=== PATIENT | female | born 1995 | race Two or more races ===

== ENCOUNTER 2019-08-30 12:04 | Inpatient (IN) | payer OTHER ==
[2019-08-30 12:53] LABS: APPEARANCE,URINE SLIGHTLY-CLOUDY; BILIRUBIN,URINE NEGATIVE (NEGATIVE); COLOR,URINE YELLOW; GLUCOSE, URINE NEGATIVE (NEGATIVE); KETONES,URINE NEGATIVE (NEGATIVE); LEUKOCYTE ESTERASE,URINE NEGATIVE (NEGATIVE); NITRITE,URINE NEGATIVE (NEGATIVE); PROTEIN,URINE 30 mg/dL (NEGATIVE); URINE SPECIFIC GRAVITY 1.018
[2019-08-30] MEDS ORDERED: RINGERS SOLUTION,LACTATED 1,000 ML IV PRN (13:04)
[2019-08-30] MEDS ORDERED: OXYTOCIN/NORMAL SALINE 20 UNIT/1,000 ML RTUINJ IV PRN (13:04)
[2019-08-30] MEDS ORDERED: PENICILLIN G POTASSIUM 5,000,000 UNIT in DEXTROSE 5%-WATER 100 ML IV ONE (13:04)
[2019-08-30 13:16] LABS: URINE AMPHETAMINES SCREEN NEGATIVE; URINE BARBITURATES SCREEN NEGATIVE; URINE BENZODIAZEPINES SCREEN NEGATIVE; URINE COCAINE SCREEN NEGATIVE; URINE MARIJUANA (THC) SCREEN NEGATIVE; URINE METHADONE SCREEN NEGATIVE; URINE PHENCYCLIDINE SCREEN NEGATIVE
[2019-08-30] MEDS ORDERED: OXYTOCIN/NORMAL SALINE 0 UNIT/0 ML RTUINJ ONE (13:23)
[2019-08-30] MEDS ORDERED: PENICILLIN G-K 5 MILLION UNIT VIAL ONE ×3 (13:23→22:46)
[2019-08-30 13:41] LABS: ABSOLUTE LYMPHOCYTES (AUTO) 2.2 10^3/uL (0.5-4.7); ABSOLUTE MONOCYTES (AUTO) 0.5 10^3/uL (0.1-1.4); ABSOLUTE NEUT (AUTO) 4.7 10^3/uL (1.7-8.2); BASOPHILS % (AUTO) 0.3 % (0-2); EOSINOPHILS % (AUTO) 0.5 % (0-6); HEMATOCRIT 31.9 % (36.0-47.0); HEMOGLOBIN 10.8 g/dL (12.0-15.5); LYMPHOCYTES % (AUTO) 29.3 % (13-45); MEAN CORPUSCULAR HEMOGLOBIN 30.1 pg (27.0-33.4); MEAN CORPUSCULAR HGB CONC 33.9 g/dL (32.0-36.0); MEAN CORPUSCULAR VOLUME 89 fl (80-97); MONOCYTES % (AUTO) 6.3 % (3-13); PLATELET COUNT 212 10^3/uL (150-450); RED CELL DISTRIBUTION WIDTH 13.6 % (11.5-14.0); SEGMENTED NEUTROPHILS % (AUTO) 63.6 % (42-78); TOTAL CELLS COUNTED % (AUTO) 100 %; WHITE BLOOD COUNT 7.4 10^3/uL (4.0-10.5)
--- NOTE | 2019-08-30 13:46 | Admission Physical ---
Datetime Report Generated by CPN: 08/30/2019 13:45 CURRENT ADMISSION Chief Complaint: Suspected Ruptured Membranes Chief Complaint Other: Reports SROM 0400 clear cramping Indication for Induction: Not Applicable Admit Impression : No Active Labor; Ruptured Membranes Admit Plan: Initiate Labor Augmentation Protocol Admit Plan- Other: GBS unknown ALLERGIES Medication Allergies: No Medication Allergies: No Known Allergies (08/30/2019) Latex: No Latex Allergies OBSTETRICAL HISTORY EDC: 09/23/2019 00:00 : 2 Para: 0 Term: 0 : 0 SAB: 0 IAB: 0 Ectopic: 0 Livin Cesareans: 0 VBACs: 0 Multiple Births: 0 Gestational Diabetes: No Rh Sensitization: No Incompetent Cervix: No ANÍBAL: No Infertility: No ART Treatment: No Uterine Anomaly: No IUGR: No Hx Previous C/S: No Macrosomia: No Hx Loss/Stillborn: No PIH: No Hx : No Placenta Previa/Abruption: No Depression/PP Depression: No PTL/PROM: No Post Hemorrhage: No Current Procedures: Ultrasound Obstetrical History Comments: G1- 7 weeks G2- Current SEE RECORDS Alcohol: No Marijuana : No Cocaine: No Other Illicit Drugs: No Cigarettes: Never Smoker. 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: No Heart Disease: No Hosp/Surgery: Yes Autoimmune Disorder: No Anesthetic Complications: No Kidney Disease: No Abnormal Pap Smear: No Neuro/Epilepsy: No Psychiatric Disorders: No Other Medical Diseases: No Hepatitis/Liver Disease: No Significant Family History: No Varicosities/Phlebitis: No Trauma/Violence : No Thyroid Dysfunction: No INFECTIOUS HISTORY Gonorrhea: No Genital Herpes: No Chlamydia: No Tuberculosis: No Syphilis: No Hepatitis: No HIV/AIDS Exposure: No Rash or Viral Illness: No HPV: No PHYSICAL EXAM General: Normal HEENT: Deferred Neurologic: Normal Thyroid: Deferred Heart: Normal Lungs: Normal Breast: Deferred Back: Deferred Abdomen: Normal Genitourinary Exam: Normal Extremities: Normal DTRs: Deferred Pelvic Type: Adequate Vital Signs: Reviewed VAGINAL EXAM Dilatation: 2 Effacement: 80 Station: -2 MEMBRANES Membranes: Ruptured Amniotic Fluid Color: Clear FETUS A EGA: 36.4 Monitoring: External US FHR- Baseline: 135 Variability: Moderate 6-25bpm Accelerations: 15X15 Decelerations: None Presentation: Vertex Admit Comment: PPROM will augment with pitocin Start GBS prophylaxis EFW yesterday at [facility] 7lb 11oz bening course excessive wt gain 50lbs PLANS FOR LABOR AND DELIVERY Labor and Delivery: None Pain Management: Medications; Epidural Feeding Preference: Breast Benefit of Breast Feed Discussed: Yes Circumcision: Yes INFORMED CONSENT Assignment: Rory Cisneros MD Signature: with User ID: Enrique : with User ID: [email or web address]
[2019-08-30 14:38] LABS: CHLAM PCR NOT DETECTED (NOT DETECT)
[2019-08-30] MEDS: PENICILLIN G POTASSIUM 2,500,000 UNIT in DEXTROSE 5%-WATER 50 ML IV SCH ×2 (18:38→22:57)
[2019-08-30] MEDS ORDERED: OXYTOCIN/NORMAL SALINE 20 UNIT/1,000 ML RTUINJ ONE (23:24)
[2019-08-30] MEDS ORDERED: LIDOCAINE 1% INJ-PF (10 MG/ML) 30 ML SDV ONE (23:24)
[2019-08-30] MEDS ORDERED: MISOPROSTOL 0.2 MG TABLET ONE (23:24)
[2019-08-30] MEDS ORDERED: OXYTOCIN 10 UNIT/ML VIAL ONE (23:24)
[2019-08-30] MEDS ORDERED: NALBUPHINE HCL INJ 10 MG/1 ML AMPULE ONE (23:54)
[2019-08-30] MEDS ORDERED: NALBUPHINE HCL INJ 10 MG/1 ML AMPULE IV ONE (23:54)
[2019-08-31] MEDS ORDERED: PENICILLIN G-K 5 MILLION UNIT VIAL ONE ×2 (02:33→06:25)
[2019-08-31] MEDS ORDERED: EPHEDRINE SULFATE INJ 50 MG/1 ML AMPULE ONE (02:47)
[2019-08-31] MEDS ORDERED: FENTANYL/BUPIVACAINE/NS/PF 300 MCG/150 ML RTUINJ EPI ONE (02:47)
[2019-08-31] MEDS ORDERED: BUPIVACAINE HCL 0.25 % INJ/PF (2.5 MG/1 ML) 30 ML VIAL ONE (02:48)
[2019-08-31] MEDS ORDERED: IBUPROFEN 800 MG TABLET ONE (09:50)
[2019-08-31] MEDS ORDERED: BENZOCAINE/MENTHOL AEROSOL SPRAY 56 ML ONE (09:51)
[2019-08-31] MEDS ORDERED: MAGNESIUM HYDROXIDE SUSP 30 ML UDCUP PO PRN (10:01)
[2019-08-31] MEDS ORDERED: PROMETHAZINE HCL 25 MG SUPP.RECT PR PRN (10:01)
[2019-08-31] MEDS ORDERED: ACETAMINOPHEN WITH CODEINE #3 TABLET PO PRN ×2 (10:01)
[2019-08-31] MEDS ORDERED: GLYCERIN/WITCH HAZEL LEAF 1 EACH MED..WIPE TP PRN (10:01)
[2019-08-31] MEDS ORDERED: DIPH/PERTUSS(ACELL)/TETANUS VAC/PF 0.5 ML SYR (>=10YO) IM PRN (10:01)
[2019-08-31] MEDS ORDERED: PROMETHAZINE HCL 25 MG TABLET PO PRN (10:01)
[2019-08-31] MEDS ORDERED: PSEUDOEPHEDRINE HCL 30 MG TABLET PO PRN (10:01)
[2019-08-31] MEDS ORDERED: NA PHOS,M-B/NA PHOS,DI-BA (ADULT) 133 ML ENEMA PR PRN (10:01)
[2019-08-31] MEDS ORDERED: DIBUCAINE 1% OINTMENT 28 GM TP PRN (10:01)
[2019-08-31] MEDS ORDERED: OXYTOCIN/NORMAL SALINE 20 UNIT/1,000 ML RTUINJ IV PRN (10:01)
[2019-08-31] MEDS ORDERED: ACETAMINOPHEN 650 MG SUPP.RECT PR PRN (10:01)
[2019-08-31] MEDS ORDERED: PROMETHAZINE HCL INJ 25 MG/1 ML VIAL IV PRN (10:01)
[2019-08-31] MEDS ORDERED: BENZOCAINE/MENTHOL AEROSOL SPRAY 56 ML TOP PRN (10:01)
[2019-08-31] MEDS ORDERED: DIPHENHYDRAMINE HCL 25 MG CAPSULE PO PRN (10:01)
[2019-08-31] MEDS ORDERED: MEASLES,MUMPS&RUBELLA VACC/PF 0.5 ML VIAL SUBCUT PRN (10:01)
[2019-08-31] MEDS: PENICILLIN G POTASSIUM 2,500,000 UNIT in DEXTROSE 5%-WATER 50 ML IV SCH (12:30)
[2019-08-31] MEDS: IBUPROFEN 800 MG TABLET PO SCH ×2 (14:34→21:53)
[2019-08-31] MEDS: DOCUSATE SODIUM 100 MG CAPSULE PO SCH (17:53)
[2019-08-31] MEDS: FERROUS SULFATE 325 MG TABLET PO SCH (17:53)
[2019-08-31] MEDS: FAMOTIDINE 20 MG TABLET PO SCH (21:53)
[2019-09-01] MEDS: IBUPROFEN 800 MG TABLET PO SCH ×3 (05:42→21:15)
[2019-09-01 07:54] LABS: HEMATOCRIT 24.5 % (36.0-47.0); MEAN CORPUSCULAR HGB CONC 34.7 g/dL (32.0-36.0); MEAN CORPUSCULAR VOLUME 89 fl (80-97); PLATELET COUNT 189 10^3/uL (150-450); RED BLOOD COUNT 2.75 10^6/uL (3.72-5.28); RED CELL DISTRIBUTION WIDTH 13.9 % (11.5-14.0); WHITE BLOOD COUNT 8.2 10^3/uL (4.0-10.5)
[2019-09-01 07:57] LABS: HEMOGLOBIN 8.5 g/dL (12.0-15.5)
[2019-09-01] MEDS: PRENATAL VITAMIN W DHA CAPSULE PO SCH (09:42)
[2019-09-01] MEDS: DOCUSATE SODIUM 100 MG CAPSULE PO SCH ×2 (09:42→17:27)
[2019-09-01] MEDS: FAMOTIDINE 20 MG TABLET PO SCH ×2 (09:42→21:15)
[2019-09-01] MEDS: FERROUS SULFATE 325 MG TABLET PO SCH ×2 (09:42→17:28)
[2019-09-01] MEDS: SENNOSIDES/DOCUSATE 8.6-50 MG 1 EACH TABLET PO SCH (09:42)
--- NOTE | 2019-09-01 10:31 | PDOC PROGRESS REPORT ---
Subjective-OB Progress Note for:: 09/01/19 Subjective: Doing well, no c/o, mother with patient, hsb deployed, baby in room and doing well, Physical Exam (OB) Vital Signs: Temp Pulse Resp BP Pulse Ox 97.7 F 73 18 106/60 95 09/01/19 07:47 09/01/19 07:47 09/01/19 07:47 09/01/19 07:47 09/01/19 07:47 Intake & Output 08/31/19 09/01/19 09/02/19 06:59 06:59 06:59 Weight 86.6 kg - Lochia Lochia Amount: Small 10-25 ml Lochia Color: Rubra/Red - Abdomen Description: Soft Hernia Present: No Fundal Description: Firm, Midline Fundal Height: u/u - u/2 Objective-Diagnostic Laboratory: 09/01/19 07:19 09/01/19 07:19 WBC 8.2 RBC 2.75 L Hgb 8.5 L D Hct 24.5 L MCV 89 MCH 31.0 MCHC 34.7 RDW 13.9 Plt Count 189 Assessment and Plan(PN) - Assessment and Plan (1) delivered vaginally, 2,000-2,499 grams, 35-36 completed weeks Is this a current diagnosis for this admission?: Yes (2) premature rupture of membranes, antepartum Is this a current diagnosis for this admission?: Yes - Time Spent with Patient Time with patient: Less than 15 minutes Medications reviewed and adjusted accordingly: Yes - Disposition Anticipated Discharge: Home Within: within 24 hours
[2019-09-02] MEDS: IBUPROFEN 800 MG TABLET PO SCH ×2 (05:24→15:01)
[2019-09-02 07:41] VITALS: BP 118/72
[2019-09-02] MEDS: PRENATAL VITAMIN W DHA CAPSULE PO SCH (09:24)
[2019-09-02] MEDS: FAMOTIDINE 20 MG TABLET PO SCH (09:25)
[2019-09-02] MEDS: DOCUSATE SODIUM 100 MG CAPSULE PO SCH ×2 (09:25→17:28)
[2019-09-02] MEDS: FERROUS SULFATE 325 MG TABLET PO SCH ×2 (09:25→17:28)
[2019-09-02] MEDS: SENNOSIDES/DOCUSATE 8.6-50 MG 1 EACH TABLET PO SCH (09:25)
--- NOTE | 2019-09-02 09:43 | PDOC PROGRESS REPORT ---
Subjective-OB Progress Note for:: 09/02/19 Subjective: Doing well, going under bili lights, will discharge and stay in a nesting room, voiding, scant bleeding, mother at BS Physical Exam (OB) Vital Signs: Temp Pulse Resp BP Pulse Ox 98.2 F 73 18 118/72 97 09/02/19 07:47 09/02/19 07:47 09/02/19 07:47 09/02/19 07:26 09/02/19 07:47 Intake & Output 09/01/19 09/02/19 09/03/19 06:59 06:59 06:59 Intake Total 120 Balance 120 - PIH/Pre-Eclampsia Headache: Absent Epigastric Pain: No Visual Changes: No - Lochia Lochia Amount: Scant < 10 ml Lochia Color: Rubra/Red - Abdomen Description: Tender, Soft Hernia Present: No Fundal Description: Firm, Midline Fundal Height: u/u - u/2 Objective-Diagnostic Laboratory: 09/01/19 07:19 Assessment and Plan(PN) - Assessment and Plan (1) delivered vaginally, 2,000-2,499 grams, 35-36 completed weeks Is this a current diagnosis for this admission?: Yes (2) premature rupture of membranes, antepartum Is this a current diagnosis for this admission?: Yes - Time Spent with Patient Time with patient: Less than 15 minutes Medications reviewed and adjusted accordingly: Yes - Disposition Anticipated Discharge: Home Within: within 24 hours
--- NOTE | 2019-09-02 09:54 | PDOC DISCHARGE SUMMARY ---
Impression - Admit/DC Date/PCP Admission Date/Primary Care Provider: 08/30/19 13:12 ALE VALDEZ MD Discharge Date: 09/02/19 - Discharge Diagnosis (1) delivered vaginally, 2,000-2,499 grams, 35-36 completed weeks Is this a current diagnosis for this admission?: Yes (2) premature rupture of membranes, antepartum Is this a current diagnosis for this admission?: Yes - Additional Information Discharge Diet: As Tolerated Discharge Activity: Activity As Tolerated, Pelvic Rest Referrals: ALE VALDEZ MD [Primary Care Provider] - Prescriptions: Ferrous Sulfate [Feosol 325 mg Tablet] 325 mg PO BID #60 tablet Home Medications: Ferrous Sulfate [Feosol 325 mg Tablet] 325 mg PO BID #60 tablet 09/02/19 HPI Gestational Age: 36.3 Reason(s) for Admission: PROM Procedures: NST, Ultrasound Intrapartum Procedure(s): Spontaneous Vaginal Delivery Complication(s): Laceration-Vaginal Laceration-Degree: 1st Hospital Course Hospital Course: routine Results Laboratory Results: WBC 8.2 10^3/uL (4.0-10.5) 09/01/19 07:19 RBC 2.75 10^6/uL (3.72-5.28) L 09/01/19 07:19 Hgb 8.5 g/dL (12.0-15.5) L D 09/01/19 07:19 Hct 24.5 % (36.0-47.0) L 09/01/19 07:19 MCV 89 fl (80-97) 09/01/19 07:19 MCH 31.0 pg (27.0-33.4) 09/01/19 07:19 MCHC 34.7 g/dL (32.0-36.0) 09/01/19 07:19 RDW 13.9 % (11.5-14.0) 09/01/19 07:19 Plt Count 189 10^3/uL (150-450) 09/01/19 07:19 Lymph % (Auto) 29.3 % (13-45) 08/30/19 13:24 [place] % (Auto) 6.3 % (3-13) 08/30/19 13:24 Eos % (Auto) 0.5 % (0-6) 08/30/19 13:24 Baso % (Auto) 0.3 % (0-2) 08/30/19 13:24 Absolute Neuts (auto) 4.7 10^3/uL (1.7-8.2) 08/30/19 13:24 Absolute Lymphs (auto) 2.2 10^3/uL (0.5-4.7) 08/30/19 13:24 Absolute Monos (auto) 0.5 10^3/uL (0.1-1.4) 08/30/19 13:24 Absolute Eos (auto) 0.0 10^3/uL (0.0-0.6) 08/30/19 13:24 Absolute Basos (auto) 0.0 10^3/uL (0.0-0.2) 08/30/19 13:24 Seg Neutrophils % 63.6 % (42-78) 08/30/19 13:24 Urine Color YELLOW 08/30/19 12:30 Urine Appearance SLIGHTLY-CLOUDY 08/30/19 12:30 Urine pH 6.0 (5.0-9.0) 08/30/19 12:30 Ur Specific [place] 1.018 08/30/19 12:30 Urine Protein 30 mg/dL (NEGATIVE) H 08/30/19 12:30 Urine Glucose (UA) NEGATIVE mg/dL (NEGATIVE) 08/30/19 12:30 Urine Ketones NEGATIVE mg/dL (NEGATIVE) 08/30/19 12:30 Urine Blood NEGATIVE (NEGATIVE) 08/30/19 12:30 Urine Nitrite NEGATIVE (NEGATIVE) 08/30/19 12:30 Urine Bilirubin NEGATIVE (NEGATIVE) 08/30/19 12:30 Urine Urobilinogen 2.0 mg/dL (<2.0) H 08/30/19 12:30 Ur Leukocyte Esterase NEGATIVE (NEGATIVE) 08/30/19 12:30 Urine Ascorbic Acid NEGATIVE (NEGATIVE) 08/30/19 12:30 Membranes Rupture POSITIVE (NEGATIVE) H 08/30/19 12:27 Urine Opiates Screen NEGATIVE 08/30/19 12:30 Urine Methadone Screen NEGATIVE 08/30/19 12:30 Ur Barbiturates Screen NEGATIVE 08/30/19 12:30 Ur Phencyclidine Scrn NEGATIVE 08/30/19 12:30 Ur Amphetamines Screen NEGATIVE 08/30/19 12:30 U Benzodiazepines Scrn NEGATIVE 08/30/19 12:30 Urine Cocaine Screen NEGATIVE 08/30/19 12:30 U Marijuana (THC) Screen NEGATIVE 08/30/19 12:30 RPR NONREACTIVE (NONREACTIVE) 08/30/19 13:24 Chlamydia DNA (PCR) NOT DETECTED (NOT DETECT) 08/30/19 12:31 N.gonorrhoeae DNA (PCR) NOT DETECTED (NOT DETECT) 08/30/19 12:31 Blood Type A POSITIVE 08/30/19 13:24 Antibody Screen NEGATIVE 08/30/19 13:24 Plan Health Concerns: routine Plan of Treatment: routine Goals: no complications Time Spent: Less than 30 Minutes
--- NOTE | 2019-09-05 08:45 | Delivery Summary ---
Del Sum A-C Datetime Report Generated by CPN: 09/05/2019 08:45 DELIVERY PERSONNEL DELIVERY PERSONNEL: [id number] Delivery Doctor:: Mireya Bourgeois CNM Nurse Data Warehousing Engineer Certified:: Mireya Bourgeois CNM Labor and Delivery Nurse:: Arlene Cagle RNembossing machine tender Nurse:: DEB Bhagat Nursery Nurse:: Inna Hahn RN Pediatric Dermatologist/LATHE SETUP OPERATOR: [facility] Pediatric Dermatologist/LATHE SETUP OPERATOR: Sarah Tomlinson, PROJECT PROGRAM MANAGER MATERNAL INFORMATION Delivery Anesthesia: Epidural Medications After Delivery: Pitocin Bolus-Please Comment; Pitocin Drip 20 Units/1000ml NSS Meds After Delivery Comment: pitocin 20 units in 1000mL in nss Delivery QBL: 600 Maternal Complications: Premature Rupture of Membranes Provider Comments: of live male from OA to MOOKIE position over vaginal laceration. NC x 1, loose, eaily reduced, baby placed on mothers abdomen, cord clamped and cut by gmother, spont delivery of grossly nl intact placent, 3 vc, laceration repaired with 2-0 vicryl without difficulty, rectum patent, FFFM, massage and IV Pitocin Baby and mom in recovery in stable condition (Annotations: Data stored by CPN on behalf of user) LABOR SUMMARY EDC: 09/23/2019 00:00 No. Babies in Womb: 1 Attempted: No Labor Anesthesia: Epidural LABOR INFORMATION Reason for Induction: Not Applicable Onset of Labor: 08/31/2019 01:10 Complete Dilatation: 08/31/2019 08:06 Oxytocin: Augmentation Group B Beta Strep: unknown Antibiotics # of Doses: 5 Antibiotics Time of Last Dose: 635 Name of Antibiotic Given: PCN Steroids Given: None Reason Steroids Not Administered: Not Applicable MEMBRANES Membranes Rupture Method: Spontaneous Rupture of Membranes: 08/30/2019 04:30 Length of Rupture (hr): 28.88 Amniotic Fluid Color: Clear Amniotic Fluid Amount: Moderate Amniotic Fluid Odor: Normal STAGES OF LABOR Stage 1 hr: 6 Stage 1 min: 56 Stage 2 hr: 1 Stage 2 min: 17 Stage 3 hr: 0 Stage 3 min: 10 Total Time in Labor hr: 8 Total Time in Labor min: 23 VAGINAL DELIVERY Episiotomy: None Laceration #1: Vaginal Laceration Repair: Yes Sponge Count Correct: N/A Sharps Count Correct: N/A CSECTION DELIVERY Primary Indication: N/A Secondary Indication: N/A CSection Incidence: N/A Labor: N/A Elective: N/A CSection Incision: N/A BABY A INFORMATION Delivery Date/Time: 08/31/2019 09:23 Method of Delivery: Vaginal Born in Route : No : N/A Forceps: N/A Vacuum Extraction: N/A Shoulder Dystocia : No PRESENTATION/POSITION BABY A Presentation: Cephalic Cephalic Presentation: Vertex Vertex Position: Right Occipital Anterior Breech Presentation: N/A PLACENTA INFORMATION BABY A Placenta Delivery Time : 08/31/2019 09:33 Placenta Method of Delivery: Spontaneous Placenta Status: Delivered SCORES BABY A Heart Rate 1 min: >100 bpm Resp Effort 1 min: Good Cry Reflex Irritability 1 min: Cough or Sneeze or Pulls Away Muscle Tone 1 min: Active Motion Color 1 min: Body [place], Extremities Blue Resuscitation Effort 1 min: Tactile Stimulation SCORE 1 MIN: 9 Heart Rate 5 min: >100 bpm Resp Effort 5 min: Good Cry Reflex Irritability 5 min: Cough or Sneeze or Pulls Away Muscle Tone 5 min: Active Motion Color 5 min: Body [place], Extremities Blue Resuscitation Effort 5 min: N/A SCORE 5 MIN: 9 Resuscitation Effort 10 min: N/A INFORMATION BABY A Gestational Age at Delivery: 36.5 Gestational Status: Late - 34- 36.6 Weeks Infant Outcome : Liveborn Condition : Stable Sex: Male IDENTIFICATION BABY A Verification Date/Time: 08/31/2019 09:34 ID Band Number: [id number] Mother's Name Verified: Yes RN Verifying Infant: B Baidy RN Additional Verifying Personnel: S [place] RNC WEIGHT/LENGTH BABY A Birthweight (gm): 3467 Infant Weight (lb): 7 Weight (oz): 10 Infant Length (in): 19.00 Length (cm): 48.26 CORD INFORMATION BABY A No. Cord Vessels: 3 Nuchal Cord : Around Neck x1, Loose Cord Blood Taken: Yes-For Storage (Mom's Blood type +) Infant Suction: None ASSESSMENT BABY A Infant Complications: Other Infant Complications- Other: terminal mec Physical Findings at Delivery: Molding of the Head Infant Respirations: Appears Normal Skin to Skin: Yes Parts Counter Associate/ALS Called : No Infant Care By: Aga Hahn RN Transferred To: Remains with Mother BABY B INFORMATION : N/A SIGNATURES : I was personally available for consultation and serving as supervising physician for the MLP.
== END 2019-09-02 17:30 | disposition home or self-care (01) | DRG 807 ==
LOC: LC 12:04 → LR 13:12 → 2S 08-31 12:40
PROVIDERS: ADMIT Obstetrics & Gynecology Gynecology; ATTEND Obstetrics & Gynecology Gynecology
PROC: 10E0XZZ Delivery of Products of Conception, External Approach (ICD-10-PCS; principal; 2019-08-31)
PROC: 0HQ9XZZ Repair Perineum Skin, External Approach (ICD-10-PCS; 2019-08-31)
DX: O42.913 Preterm premature rupture of membranes, unspecified as to length of time between rupture and onset of labor, third trimester (principal); O70.0 First degree perineal laceration during delivery; O77.0 Labor and delivery complicated by meconium in amniotic fluid; O69.81X0 Labor and delivery complicated by cord around neck, without compression, not applicable or unspecified; Z3A.36 36 weeks gestation of pregnancy; Z37.0 Single live birth
CPT/HCPCS: 36415; 80307; 81005; 84112; 85025; 85027; 86592; 86850; 86900; 86901; 87491; 87591; 94760; J2300; J2540; J2590; J3010; J3490